=== PATIENT | male | born 1980 | race Caucasian/White ===

== ENCOUNTER 2018-02-06 02:01 | Emergency (ER) | payer OTHER ==
[2018-02-06] MEDS ORDERED: Aspirin 81 MG Tab.Chew PO ONE (02:33)
[2018-02-06] MEDS ORDERED: Sodium Chloride 0.9% 10 ML Syringe FLUSH PRN (02:33)
[2018-02-06] MEDS ORDERED: Sodium Chloride 0.9% 2.5 ML Syringe FLUSH PRN (02:33)
--- NOTE | 2018-02-06 02:36 | EDM.PDOC ---
ED HPI GENERAL MEDICAL PROBLEM - General Chief Complaint: Chest Pain Stated Complaint: CHEST TIGHTNESS Time Seen by Provider: 02/06/18 02:08 - History of Present Illness INITIAL COMMENTS - FREE TEXT/NARRATIVE: HISTORY AND PHYSICAL: History of present illness: The patient is a 37-year-old male with a history of hypertension who takes medication and unknown cholesterol and lipid panel presents with an episode of heartburn/mid chest pain that occurred while he was in bed trying to sleep. The patient said he has been under a lot of stress at work and had a normal day yesterday and ate his normal meals when he was in bed resting and he woke up and felt the discomfort. The discomfort did not specifically wake him from sleep but he felt like it was a gassy heartburn and he thought that he might need to burp. He said that this is happened before and the pain did not radiate but then he started feeling short of breath and a little bit sweaty but no nausea or vomiting. He has no abdominal complaints and no cough fever or upper respiratory symptoms. The patient said that these symptoms started about 30 minutes prior to presenting to the ED and on arrival he says that the discomfort is gone. He took no medications prior to coming here. The patient says he does have a history of having an anxiety attack in the past and he said this felt somewhat similarly but not exactly and he thinks that's what it was because he feels better now. Patient has no leg pain or swelling and no complaints on my evaluation. He has no recent trauma to his chest wall or abdomen. The patient smokes cigarettes but denies drug use and has no family history significant for cardiac disease. The patient says he has not had his cholesterol lipid panel done in more than one to 2 years Review of systems: As per history of present illness and below otherwise all systems reviewed and negative. Past medical history: As per history of present illness and as reviewed below otherwise noncontributory. Surgical history: As per history of present illness and as reviewed below otherwise noncontributory. Social history: No reported history of drug or alcohol abuse. Family history: As per history of present illness and as reviewed below otherwise noncontributory. Physical exam: General: Well-developed well-nourished man who is nontoxic and mildly overweight and vital signs are noted by me. HEENT: Atraumatic, normocephalic, pupils reactive, negative for conjunctival pallor or scleral icterus, mucous membranes moist, throat clear, neck supple, nontender, trachea midline. Lungs: Clear to auscultation, breath sounds equal bilaterally, chest nontender. Heart: S1S2, regular, negative for clicks, rubs, or JVD. Abdomen: Soft, nondistended, nontender. Negative for masses or hepatosplenomegaly. Negative for costovertebral tenderness. Pelvis: Stable nontender. Genitourinary: Deferred. Rectal: Deferred. Extremities: Atraumatic, negative for cords or calf pain. Neurovascular unremarkable. No pedal edema or leg asymmetry Neuro: Awake, alert, oriented. Cranial nerves II through XII unremarkable. Cerebellum unremarkable. Motor and sensory unremarkable throughout. Exam nonfocal. Diagnostics: EKG chest x-ray CBC CMP troponin lipase H. pylori Therapeutics: IV O2 monitor aspirin The patient has been pain free the entire time he has been in the ED. I discussed with the patient at length all testing results and have recommended observation admission as the most conservative course to take but he would prefer to defer this and go and see his family physician in [place]. I discussed with him risks involved with this and he accepts them and I cautioned him on reasons to return to the ED. I will advise him to take 1/3/25 milligram aspirin daily until he follows up. Impression: Episode of chest pain resolved spontaneously Definitive disposition and diagnosis as appropriate pending reevaluation and review of above. chest pain Pain Score (Numeric/FACES): 1 - Related Data Allergies Allergy/AdvReac Type Severity Reaction Status Date / Time unknown BP medication Allergy Cannot Uncoded 02/06/18 02:12 Remember Home Meds: Home Meds . [Unable to Verify Home Med List] 02/06/18 [History] Past Medical History Cardiovascular History: Reports: Hypertension Gastrointestinal History: Reports: GERD Psychiatric History: Reports: Anxiety Social & Family History - Family History Family Medical History: Noncontributory - Tobacco Use Smoking Status *Q: Current Every Day Smoker Years of Tobacco use: 18 Packs/Tins Daily: 1 - Caffeine Use Caffeine Use: Reports: None - Recreational Drug Use Recreational Drug Use: No ED ROS GENERAL - Review of Systems Review Of Systems: ROS reveals no pertinent complaints other than HPI. ED EXAM, GENERAL - Physical Exam Exam: See Below (See dictation) Course - Vital Signs Last Recorded V/S: Last Vital Signs Temp 36.7 C 02/06/18 03:20 Pulse 84 02/06/18 03:20 Resp 18 02/06/18 03:20 BP 137/79 02/06/18 03:20 Pulse Ox 97 02/06/18 03:20 - Orders/Labs/Meds Orders: Active Orders 24 hr Category Date Time Status Cardiac Monitoring [RC] . DIRECTED Care 02/06/18 02:33 Active EKG 12 Lead [EKG Documentation Completion] [RC] STAT Care 02/06/18 02:15 Active Oxygen Therapy, ED [RC] ASDIRECTED Care 02/06/18 02:33 Active Pulse Oximetry [RC] ASDIRECTED Care 02/06/18 02:33 Active Chest 1V Frontal [CR] Stat Exams 02/06/18 02:33 Taken Sodium Chloride 0.9% [Saline Flush] Med 02/06/18 02:33 Active 10 ml FLUSH ASDIRECTED PRN Sodium Chloride 0.9% [Saline Flush] Med 02/06/18 02:33 Active 2.5 ml FLUSH ASDIRECTED PRN Saline Lock Insert [OM.PC] Stat Oth 02/06/18 02:33 Ordered Medication Orders Sodium Chloride (Saline Flush) 10 ml FLUSH ASDIRECTED PRN PRN Reason: Keep Vein Open Sodium Chloride (Saline Flush) 2.5 ml FLUSH ASDIRECTED PRN PRN Reason: Keep Vein Open Labs: Laboratory Tests 02/06/18 02/06/18 02/06/18 Range/Units 02:00 02:00 02:00 WBC 10.08 (4.0-11.0) K/uL RBC 4.94 (4.50-5.90) M/uL Hgb 15.4 (13.0-17.0) g/dL Hct 43.7 (38.0-50.0) % MCV 88.5 (80.0-98.0) fL MCH 31.2 (27.0-32.0) pg MCHC 35.2 (31.0-37.0) g/dL RDW Std Deviation 43.9 (28.0-62.0) fl RDW Coeff of Gm 14 (11.0-15.0) % Plt Count 264 (150-400) K/uL MPV 10.40 (7.40-12.00) fL Neut % (Auto) 54.3 (48.0-80.0) % Lymph % (Auto) 34.4 (16.0-40.0) % Tompkins % (Auto) 7.7 (0.0-15.0) % Eos % (Auto) 3.2 (0.0-7.0) % Baso % (Auto) 0.4 (0.0-1.5) % Neut # (Auto) 5.5 (1.4-5.7) K/uL Lymph # (Auto) 3.5 H (0.6-2.4) K/uL Tompkins # (Auto) 0.8 (0.0-0.8) K/uL Eos # (Auto) 0.3 (0.0-0.7) K/uL Baso # (Auto) 0.0 (0.0-0.1) K/uL Nucleated RBC % 0.0 /100WBC Nucleated RBCs # 0 K/uL Sodium 139 (136-148) mmol/L Potassium 4.0 (3.5-5.1) mmol/L Chloride 104 (98-107) mmol/L Carbon Dioxide 26.4 (21.0-32.0) mmol/L BUN 17 (7.0-18.0) mg/dL Creatinine 1.0 (0.8-1.3) mg/dL Est Cr Clr Drug Dosing 125.38 mL/min Estimated GFR (MDRD) > 60.0 ml/min Glucose 111 H (74-106) mg/dL Calcium 9.0 (8.5-10.1) mg/dL Total Bilirubin 0.2 (0.2-1.0) mg/dL AST 22 (15-37) IU/L ALT 30 (14-63) IU/L Alkaline Phosphatase 93 (46-116) U/L Troponin I < 0.050 (0.000-0.056) ng/mL Total Protein 7.7 (6.4-8.2) g/dL Albumin 4.0 (3.4-5.0) g/dL Globulin 3.7 H (2.0-3.5) g/dL Albumin/Globulin Ratio 1.1 L (1.3-2.8) Lipase 135 (73-393) U/L H. pylori IgG Antibody NEGATIVE (NEG) Meds: Medications Generic Name Dose Route Start Last Admin Trade Name Freq PRN Reason Stop Dose Admin Sodium Chloride 10 ml 02/06/18 02:33 Saline Flush FLUSH ASDIRECTED PRN Keep Vein Open Sodium Chloride 2.5 ml 02/06/18 02:33 Saline Flush FLUSH ASDIRECTED PRN Keep Vein Open Discontinued Medications Generic Name Dose Route Start Last Admin Trade Name Freq PRN Reason Stop Dose Admin Aspirin 324 mg 02/06/18 02:33 02/06/18 02:39 Aspirin PO 02/06/18 02:34 324 mg ONETIME ONE Administration Departure - Departure Time of Disposition: 03:35 Disposition: Home, Self-Care 01 Condition: Good Clinical Impression: Chest pain Qualifiers: Chest pain type: unspecified Qualified Code(s): R07.9 - Chest pain, unspecified - Discharge Information Forms: ED Department Discharge Additional Instructions: The following information is given to patients seen in the emergency department who are being discharged to home. This information is to outline your options for follow-up care. We provide all patients seen in our emergency department with a follow-up referral. The need for follow-up, as well as the timing and circumstances, are variable depending upon the specifics of your emergency department visit. If you don't have a primary care physician on staff, we will provide you with a referral. We always advise you to contact your personal physician following an emergency department visit to inform them of the circumstance of the visit and for follow-up with them and/or the need for any referrals to a consulting specialist. The emergency department will also refer you to a specialist when appropriate. This referral assures that you have the opportunity for followup care with a specialist. All of these measure are taken in an effort to provide you with optimal care, which includes your followup. Under all circumstances we always encourage you to contact your private physician who remains a resource for coordinating your care. When calling for followup care, please make the office aware that this follow-up is from your recent emergency room visit. If for any reason you are refused follow-up, please contact the [facility] emergency department at and ask to speak to the emergency department charge nurse. [facility] Primary care- Internal Medicine and Family [address] [address] Please take one 325 milligrams aspirin daily until you're followed up by her doctor. Please contact our clinic in the next few days for further reevaluation and care or please connect with your family physician: Diana as we discussed for further testing. Return to ER as needed and as discussed. - My Orders Last 24 Hours: My Active Orders 02/06/18 02:15 EKG 12 Lead [EKG Documentation Completion] [RC] STAT 02/06/18 02:33 Cardiac Monitoring [RC] . DIRECTED Oxygen Therapy, ED [RC] ASDIRECTED Pulse Oximetry [RC] ASDIRECTED Chest 1V Frontal [CR] Stat Sodium Chloride 0.9% [Saline Flush] 10 ml FLUSH ASDIRECTED PRN Sodium Chloride 0.9% [Saline Flush] 2.5 ml FLUSH ASDIRECTED PRN Saline Lock Insert [OM.PC] Stat - Assessment/Plan Last 24 Hours: My Active Orders 02/06/18 02:15 EKG 12 Lead [EKG Documentation Completion] [RC] STAT 02/06/18 02:33 Cardiac Monitoring [RC] . DIRECTED Oxygen Therapy, ED [RC] ASDIRECTED Pulse Oximetry [RC] ASDIRECTED Chest 1V Frontal [CR] Stat Sodium Chloride 0.9% [Saline Flush] 10 ml FLUSH ASDIRECTED PRN Sodium Chloride 0.9% [Saline Flush] 2.5 ml FLUSH ASDIRECTED PRN Saline Lock Insert [OM.PC] Stat
[2018-02-06 02:51] LABS: CHLORIDE,CL 104 mmol/L (98-107); SODIUM,NA 139 mmol/L (136-148)
--- NOTE | 2018-02-08 18:26 | CR ---
EXAM DATE: 02/06/18 PATIENT'S AGE: 37 Patient: LAKHWINDER RODRIGUEZ Facility: [place], [place] Site . Site : [id number] Study: XRay Chest [id number]/[id number] 2:53:22 AM Ordering Physician: Flo Adams Final Report: INDICATION: Chest Pain TECHNIQUE: Chest 1 view COMPARISON: September 14, 2013 FINDINGS: Cardiovascular and mediastinum: Heart size and vasculature are normal in caliber and appearance. Mediastinum is within normal limits. Lungs and pleural space: No focal consolidation. No sign of pleural effusion. No pneumothorax. Bones and soft tissues: No significant findings. IMPRESSION: No acute cardiopulmonary disease. Dictated by Kulwant Carballo MD @ 02/06/2018 2:54:14 AM Dictated by: Kulwant Carballo MD @ 02/06/2018 02:54:21 (Electronic Signature) MTDD
== END 2018-02-06 03:40 | disposition home or self-care (01) ==
LOC: MW.ED 02:01
DX: R07.9 Chest pain, unspecified (principal); I10 Essential (primary) hypertension; K21.9 Gastro-esophageal reflux disease without esophagitis; F17.210 Nicotine dependence, cigarettes, uncomplicated; Z88.8 Allergy status to other drugs, medicaments and biological substances
CPT/HCPCS: 71045; 80053; 83690; 84484; 85025; 86677; 93005; 99285; A9270